=== PATIENT | male | born 1995 | race Two or more races ===

== ENCOUNTER 2016-06-18 10:08 | Day surgery (SDC) | payer OTHER ==
[2016-06-17 12:15] VITALS: BMI 26.0
[2016-06-18] VITALS (13 sets, daily range): BP systolic 103–135; BP diastolic 53–75; PULSE 70–97; RESP 12–18; Ht 177.8 cm; Wt 77.3 kg
[~2016-06-18] VITALS: Ht 177.8 cm; Wt 77.3 kg
[~2016-06-18 10:08] MED LIST: CEFAZOLIN 1 GM INJ ONE; CEFAZOLIN 2 GM/50 ML (PMX) 50 ML IVPB ONE; SOD CHLORIDE 0.9% 1,000 ML IV SCH
[2016-06-18] MEDS ORDERED: DOXY100T20 PO (10:53)
[2016-06-18] MEDS ORDERED: BUPIVACAINE 0.25% (MPF) 30 ML INJ ONE (11:05)
[2016-06-18] MEDS ORDERED: SUCCINYLCHOLINE CHLORIDE 100 MG/5 ML SYG IV ONE (11:13)
[2016-06-18] MEDS ORDERED: LIDOCAINE 100 MG SYRINGE ONE (11:13)
[2016-06-18] MEDS ORDERED: ONDANSETRON 4 MG INJ ONE (11:13)
[2016-06-18] MEDS ORDERED: FENTAnyl 50 MCG/ML VIAL ONE (11:13)
[2016-06-18] MEDS ORDERED: MIDAZOLAM 1 MG/ML 2 ML INJ ONE (11:13)
[2016-06-18] MEDS ORDERED: DEXAMETHASONE 4 MG/ML 1 ML INJ ONE (11:13)
[2016-06-18] MEDS ORDERED: PROPOFOL 20 ML ONE ×2 (11:13→11:59)
[2016-06-18] MEDS ORDERED: KETOROLAC 30 MG INJ ONE (11:29)
[2016-06-18] MEDS ORDERED: BUPIVACAINE 0.25% (STERILE-PAK) 30 ML INJ INJ ONE (11:35)
[2016-06-18] MEDS ORDERED: HYDROCODONE/APAP (5/325) TAB PO ONE (12:30)
--- NOTE | 2016-06-18 12:40 | OPR ---
DATE OF OPERATION: 06/18/2016 INDICATION: This is a 21-year-old male with a pilonidal cyst. He requests surgical excision. Risk s, alternatives, benefits, and personnel were discussed with the patient. The patient expressed his understanding and consents to the operation. PREOPERATIVE DIAGNOSIS: Pilonidal cyst. POSTOPERATIVE DIAGNOSIS: Pilonidal cyst. OPERATIONS PERFORMED: 1. Pilonidal cystectomy with a 6 cm size incision and 6 x 3 cm mass. 2. Localized adjacent tissue transfer with the use of skin flaps. SURGEON: Mary Ellen Sousa MD SPECIMENS: Pilonidal cyst. COMPLICATIONS: None. ANESTHESIA: General. DESCRIPTION OF PROCEDURE: The patient was taken to the OR and prepped and draped in the usual steri le fashion. Surgical time out was performed. IV antibiotics were given. An elliptical incision wa s made over the pilonidal cyst with a 15 blade. Dissection cautery was carried down all the way ibis n to the sacrum. There was good hemostasis. This specimen was removed. Due to the large tissue de fect, right-sided gluteal fascia was released for advancement flaps. Bilateral advancement flaps we re performed and closure was performed with multilayer closure with interrupted 2-0 Vicryl and inter rupted 2-0 nylon. Local anesthesia was injected at the beginning and at the end of the case. Dry d ressings were applied. Dictated By: MARY ELLEN MCNAMARA/BROWN Conf#: [id number] DID#: [id number]
== END 2016-06-18 14:15 | disposition home or self-care (01) ==
LOC: SDS 10:08
PROVIDERS: ATTEND Surgery
DX: L05.91 Pilonidal cyst without abscess (principal)
CPT/HCPCS: 11772; 88304; J0330; J0690; J1100; J1885; J2001; J2250; J2405; J3010; Z7512; Z7610